=== PATIENT | female | born 1980 | race Caucasian/White ===

== ENCOUNTER 2016-06-19 07:08 | Emergency (ER) | payer OTHER ==
[~2016-06-19] VITALS: Ht 167.6 cm; Wt 72.7 kg
--- NOTE | 2016-06-19 07:15 | ED.REPORT ---
HPI-Abd Pain F Under 40 Date of Service Jun 19, 2016 ED Provider: Dr. Yung Shearer MD A 35 year old, 1 week female with a previous history of ectopic s/p salpingectomy and kidney stones female presents to the ED via EMS with left sided abdominal pain that began approx. 2 hours prior to arrival. The pain initially began in her left flank and radiated forward to her abdomen. Abdominal CT on 06/06 revealed left nephrolithiasis. She reports that her current pain is more severe than her previous visit. Associated symptoms include flushed skin and diaphoresis. Patient took Percocet at home with little relief. EMS administered 100 mg of fentanyl and 10 mg of Ketamine en route with little effect. Patient's last menstrual cycle was 05/13 and had a positive home test 3 days ago. Patient denies any vaginal bleeding, hematuria, SOB, cough or dysuria. Nursing Notes Stated Complaint: ABDOMINAL/BACK PAIN Nursing Notes Reviewed: Yes Allergies: Coded Allergies: No Known Allergies (Unverified , 06/19/16) Scheduled PRN Hydrocodone-Acetaminophen 5-325 mg (Hydrocodone-Acetaminophen 5-325 mg) 1 Each Tablet 1 TABLET PO Q4H PRN PRN For Pain Metoclopramide (Reglan) 10 Mg Tablet 10 MG PO QID PRN PRN For Nausea/Vomiting General Time Seen by MD: 07:22 Chief Complaint Abdominal pain Hx Obtained From: Patient Arrived By: Ambulance Sudden in Onset?: No Symptom Duration: Since onset Progression since Onset: Constant Quality: Painful Severity: Current: Moderate Severity: Maximum: Moderate Pertinent Negative: Pt denies other symptoms Status: Positive - home urine HCG : 4 Para: 1 Recent Healthcare: No recent hospitalization, Recent doctor visit Risk Factors Ectopic Risk Stratification Prior Ectopic Risk factors reviewed Past Medical History Past Medical History Notes: Past Medical History Ectopic Kidney Stones Past Surgical History Salpingectomy Smoking History Unknown if Ever Smoker Social History Other Social History: Good social support, Local resident Ambulatory Status Independent Review of Systems Constitutional: Reports: Fever (Pt unsure (reports feeling warm)) Respiratory: Denies: Non-productive cough, Shortness of breath GI: Reports: Abdominal pain Female: Reports: (6 wks ), Denies: Dysuria, Hematuria, Vaginal bleeding - abnl Musculoskeletal: Reports: Back pain (left flank pain) Complete sys rev & neg: except as marked. Physical Exam Initial Vital Signs Vital Signs (First) Date Time Temp Pulse Resp B/P Pulse Ox O2 Delivery O2 Flow Rate FiO2 06/19/16 07:24 35.8 74 19 137/116 100 Room Air Initial VS: Reviewed Head / Eyes: Atraumatic, Normocephalic, PERRL Skin: Warm, Dry, No cyanosis Neurologic: Alert, Oriented, Nonfocal Psychiatric: Mood/affect normal, Behavior normal, Normal thought content General/Constitutional: Awake, Alert Distress / Hydration: Positive: Distress moderate Respiratory / Chest: Atraumatic, No respiratory distress (Normal respiratory effort) Cardiovascular: Pulses = bilaterally Abdomen: Atraumatic, Soft Back: Atraumatic, Inspection NL Upper Extremity / MS: Atraumatic, Inspection NL, Neurologic intact, Vascular intact Lower Extremity / Pelvis / MS: Atraumatic, Neurologic intact, Vascular intact Pelvis: Positive: Tender L lateral Interpretation & Diagnostics Lab Results Interpretation Result Diagram: 06/19/16 0930 06/19/16 0855 Test 06/19/16 08:55 06/19/16 09:25 06/19/16 09:30 Sodium Level 139mEq/L (134-144) Potassium Level 3.8mEq/L (3.5-5.2) Chloride Level 106mEq/L (97-108) Carbon Dioxide Level 16mmol/L (18-29) Blood Urea Nitrogen 10mg/dL (6-20) Creatinine 0.69mg/dL (0.57-1.00) Estimat Glomerular Filtration Rate 140mL/min (>59) Glucose Level 118mg/dL (60-99) Calcium Level 8.6mg/dL (8.5-10.1) Total Bilirubin 0.4mg/dL (0.0-1.2) Aspartate Amino Transf (AST/SGOT) 15U/L (0-50) Alanine Aminotransferase (ALT/SGPT) 19U/L (0-32) Alkaline Phosphatase 60U/L (25-150) Total Protein 6.9g/dL (6.4-8.4) Albumin 4.2g/dL (3.4-5.0) HCG Beta Subunit 162.3mIU/mL Urine Color Yellow (YELLOW) Urine Appearance Hazy (CLEAR,HAZY) Urine pH 6.0 (5.0-8.0) Urine Specific Pep 1.020 (1.003-1.035) Urine Protein Negativemg/dL (NEG,TRACE) Urine Glucose (UA) Negativemg/dL (NEGATIVE) Urine Ketones >80mg/dL (NEGATIVE) Urine Occult Blood Moderate (NEGATIVE) Urine Nitrite Negative (NEGATIVE) Urine Bilirubin Negative (NEGATIVE) Urine Urobilinogen Normalmg/dL (NORMAL) Urine Leukocyte Esterase Small (NEGATIVE) Urine RBC 3-10/hpf (0-2) Urine WBC 6-10/hpf (0-5) Urine Epithelial Cells Many/hpf (NONE-MOD) Urine Crystals None seen (NONE SEEN) Urine Bacteria Moderate/hpf (NONE-FEW) Urine Hyaline Casts None/lpf (NONE) Urine Granular Casts None seen (NONE SEEN) Urine Waxy Casts None seen (NONE SEEN) Urine Red Blood Cell Casts None seen (NONE SEEN) Urine White Blood Cell Casts None seen (NONE SEEN) Urine Mucus Present (None Seen) Urine Trichomonas None seen (NONE SEEN) Urine Yeast None (NONE SEEN) Urinalysis Comment None Urine Culture Reflexed Indicated White Blood Count 14.3th/mm3 (3.8-10.1) Red Blood Count 4.08mil/mm3 (3.90-5.20) Hemoglobin 12.6g/dL (12.0-15.6) Hematocrit 38.5% (35.0-46.0) Mean Corpuscular Volume 94.4fL (81-100) Mean Corpuscular Hemoglobin 30.9pg (27.0-35.0) Mean Corpuscular Hemoglobin Concent 32.7% (32.0-37.0) Red Cell Distribution Width 12.7% (12.3-15.4) Platelet Count 274bil/L (150-400) Point of Care Testing: Preg test pos - urine US Focused OB IMPRESSION: Endomysium is thick 1cm x 1 cm x 1cm in right ovary Kidney is normal No free fluid Re-Eval/Medical Decision Med Decision/Clinical Course Med Decision/Clinical Course: Likely related to nephrolithiasis, does not appear to have a urinary tract infection, no evidence of an ectopic on ultrasound however her hCG is very low. She will be discharged on Vicodin which she has had before as well as Reglan. Recommend close follow-up with serial hCG and ultrasound. Return and follow-up precautions given. Re-Evaluation/Progress #1: Time of Eval: 09:13 Patient Status: Condition improved, Pain improved Re-Evaluation/Progress Note: Patient is informed of her US results. She reports that her symptoms have improved. Patient will attmept to provide a urine sample. Re-Evaluation/Progress #2: Time of Eval: 10:02 Patient Status: Condition improved Re-Evaluation/Progress Note: Patient's symptoms have improved. She is informed of her reassuring lab results and US results. Mother's questions about possible infection are addressed. Counseled Regarding: Diagnosis, Lab results, Need for follow-up, When/why to return to ED Discharge & Departure Primary Impression: Nephrolithiasis Additional Impression: Early stage of Disposition: Home Discharge Condition All VS Reviewed: Yes Condition: Improved Patient Instructions: Nephrolithiasis (ED), (ED) Additional Instructions: Thank you for trusting us with your care this morning. Your emergency department results are reassuring that there is no evidence of ectopic or infection at this time and your lab results reveled that you are approx. 1 week . Your results also indicated that your pain is likely due to your kidney stones. Please take 1-2 [place] every 8 hours as needed for pain. This medication is a narcotic and may cause drowsiness. Please do not drink, drive or use acetaminophen while taking this medication. Schedule a follow up appointment with your primary care physician and/or a [facility]/ OB in the next 1-2 days for a recheck and repeat Hcg level as well as possible ultrasound. Please return to the ED if you begin to experience any new or worsening symptoms including any worsening pain, fever of 102F, chills, nausea or vomiting. Referrals: Alisson Hurley PA-C (PCP) Tim Attestation Portions of this note were transcribed by Carmen Daugherty. I, Dr. Shearer personally performed the history, physical exam and medical decision-making; I reviewed and confirmed the accuracy of the information in the transcribed note. Signed by: Tim King, 06/19/16 1007. copies to: Alisson Hurley PA-C, Timothy S DO Jun 19, 2016 07:15 CARMEN DAUGHERTY Jun 19, 2016 07:30
[2016-06-19 07:24] VITALS: BP 137/116; PULSE 74; RESP 19; O2SAT 100
[2016-06-19] MEDS ORDERED: 0.9% Sodium Chloride 1,000 ML IV ONE (07:29)
[2016-06-19] MEDS ORDERED: Ketorolac 15 mg/mL Inj IVPUSH ONE (07:35)
[2016-06-19] MEDS ORDERED: Ondansetron 2 mg/mL 2 mL Inj IVPUSH PRN (07:35)
[2016-06-19] MEDS ORDERED: MetoCLOpramide 5 mg/mL 2 mL Inj IVPUSH ONE (08:20)
[2016-06-19 09:37] LABS: Mean Corpuscular Hemoglobin 30.9 pg (27.0-35.0); Mean Corpuscular Volume 94.4 fL (81-100)
[2016-06-19 09:49] LABS: APPEARANCE,URINE HAZY (CLEAR,HAZY); COLOR,URINE YELLOW (YELLOW); OCCULT BLOOD,URINE MODERATE (NEGATIVE); UROBILINOGEN,URINE NORMAL (NORMAL)
[2016-06-19] MEDS ORDERED: METO-301 PO (10:11)
[2016-06-19] MEDS ORDERED: HYDR-4003 PO (10:11)
--- NOTE | 2016-06-19 10:16 | DRSVH ---
PROCEDURE: US PELVIC SONOGRAM + TRANSVAGINAL SONOGRAM INDICATIONS: LEFT PELVIC PAIN, EARLY , H/O ECTOPIC TECHNIQUE: Real-time scanning was performed of the pelvic organs, with image documentation. Additional endovagi nal scanning was necessary due to incomplete visualization of the adnexal and endometrial structures by transabdominal scanning. COMPARISON: None. FINDINGS: Transabdominal scanning: Limited scanning through the kidneys shows no hydronephrosis. No pathologi c free abdominal or pelvic fluid. Endovaginal scanning: Uterus: Uterus is normal in size at 8.9 x 7.6 x 4.7 cm. The endometrium measures 11.8 mm in combine d thickness. Ovaries: Right adnexa measures 2.5 x 2.5 x 2.1 cm. Left adnexa measures 1.6 x 1.5 x 1.5 cm. Right adn exal follicles are noted. Prominent right adnexal follicle measures 1.0 x 0.9 x 0.7 cm and left adnex a sonographically normal. IMPRESSION: 1. Uterus is sonographically normal. 2. Right adnexal functional follicles. 3. Left adnexa sonographically normal. 4. test lab results pending at the time of examination. If the patient's test is positive, then early ectopic cannot be excluded. Dictated by: Jossie Browne MD, PhD on 06/19/2016 at 10:12 Approved by: Jossie Browne MD, PhD on 06/19/2016 at 10:15
[2016-06-19 10:38] VITALS: BP 99/54; PULSE 74; RESP 19; O2SAT 100
== END 2016-06-19 10:11 | disposition home or self-care (01) ==
LOC: SED 07:08 → EDBD 07:08 → EDUNIT# 07:08 → SED 10:11
DX: O23.01 Infections of kidney in pregnancy, first trimester (principal); Z3A.01 Less than 8 weeks gestation of pregnancy
CPT/HCPCS: 36415; 76830; 76856; 80053; 81000; 81025; 84702; 85027; 87086; 87088; 96361; 96374; 96375; 99285; J1200; J1885; J2405; J2765; J7030